=== PATIENT | female | born 1975 | race Caucasian/White ===

== ENCOUNTER → 2016-05-19 | Outpatient (CLI) | payer OTHER ==
--- NOTE | 2016-05-19 10:34 | US ---
Left Breast Sonography Clinical History: 41-year-old female noted to have a 6 mm well-circumscribed neodensity in the 3 o'cl ock position of the left breast. Evaluate for cyst versus solid. Technique: A linear 12 MHz transducer was used to sonographically evaluate the 3 o'clock position of the left breast. Color Doppler and harmonics were used. Both the battery tester and the sonologist perfo rmed the exam. Comparison Study: Diagnostic mammography from earlier today. Findings: There is a well-circumscribed anechoic cyst in the 3 o'clock position, 4 cm from the nipple , measuring 4.2 x 5.7 x 4.0 mm. There is no intrinsic septation, mural nodularity, or hyperemia. Impression: There is a simple-appearing 6 mm cyst in the 3 o'clock position of the left breast. Recommendation: Routine annual mammographic screening. I discussed the findings with the patient at the time of exam performance and also encouraged her to perform monthly breast self exam.
--- NOTE | 2016-05-19 10:38 | MA ---
Diagnostic Digital Left Mammography Clinical History: 41-year-old female noted to have a possible developing neodensity in lateral left breast on a recent screening mammogram. Technique: Digital small-paddle spot compression CC, large-paddle MLO, rolled medial and rolled later al craniocaudal views and a true mediolateral view of the left breast were obtained and compared to p revious studies of April 28, 2016 and March 05, 2015. This examination was processed by the [employer] computer-aided detection system. Breast Density: Type B. CAD Evaluation: Reviewed. Findings: There is a well-circumscribed oval-shaped nodule measuring 5.8 mm in diameter in the 3 o'cl ock position of the left breast. Sonography will be performed to determine if this is cystic or solid . Impression: Needs additional imaging evaluation of persistent small rounded mass in the 3 o'clock pos ition of the left breast. BI-RADS Category: 0, incomplete. Recommendation: Targeted sonography.
== END ==
LOC: BRMIMAGING 09:16
DX: N60.02 Solitary cyst of left breast (principal)
CPT/HCPCS: 76641; G0206

== ENCOUNTER → 2017-06-12 | Outpatient (CLI) | payer OTHER | LOC: BRMIMAGING 08:03 | PROVIDERS: ATTEND Physician Assistant Medical | DX: Z12.31 Encounter for screening mammogram for malignant neoplasm of breast (principal) ==

== ENCOUNTER → 2017-06-15 | Outpatient (CLI) | payer OTHER | LOC: BRMIMAGING 09:01 | PROVIDERS: ATTEND Physician Assistant Medical | DX: R92.8 Other abnormal and inconclusive findings on diagnostic imaging of breast (principal) ==

== ENCOUNTER → 2018-06-19 | Outpatient (CLI) | payer OTHER | LOC: FIMAGING 15:03 | PROVIDERS: ATTEND Physician Assistant Medical | DX: Z12.31 Encounter for screening mammogram for malignant neoplasm of breast (principal); Z80.3 Family history of malignant neoplasm of breast ==